=== PATIENT | female | born 1930 | race Caucasian/White ===

== ENCOUNTER 2016-11-08 16:56 | Inpatient (IN) | payer OTHER ==
--- NOTE | ~2016-11-08 | DS ---
Discharge Summary [facility] [address] [place]. [address] NAME: VERA SOTELO : 31 STATUS : DIS IN PAT#: [id number] AGE: 86 ADM/REG DATE : 11/08/16 MR#: [id number] REPORT SERV DATE: 11/13/16 DICTATED BY: DARIO GENTILE DATE: 11/12/16 REPORT STATUS : Draft TRANSCRIBED BY: MODL DATE: 11/12/16 ADMISSION DATE: 11/08/2016 DISCHARGE DATE: 11/12/2016 DISCHARGE DIAGNOSES: 1. Left hip femoral neck fracture, status post hemiarthroplasty of the left hip. 2. History of coronary artery disease with a stent in the past. 3. Type 2 diabetes mellitus. 4. Hypertension. 5. Hyperlipidemia. 6. History of breast cancer, status post right mastectomy, on tamoxifen. 7. History of obstructive sleep apnea. 8. History of atrial flutter. 9. History of postoperative deep venous thrombosis, currently on Eliquis. 10.Osteoporosis. 11.Syncope, most likely vasovagal in nature. CONSULTANTS DURING THIS HOSPITALIZATION: Dr. Dwight Mike of Orthopedic Surgery. INVASIVE PROCEDURES DONE DURING THIS HOSPITALIZATION: Left hip hemiarthroplasty by Dr. Mike on 11/09/2016. BRIEF HISTORY OF PRESENT ILLNESS: The patient is an 86-year-old female who suffered a fall at home with left hip pain and found to have a displaced left femoral neck fracture. So, she was admitted. For detailed history and physical exam, please see note dictated by Dr. Geo Loaiza on 11/08/2016. HOSPITAL COURSE: After being admitted to the hospital, this patient was seen by Orthopedic Surgery and appropriate surgery was performed. She was given DVT prophylaxis and postoperatively, she has mild anemia due to postop blood loss; but otherwise, she remained stable. Physical Therapy has recommended rehab. Orthopedic Surgery has signed off her care. Her diabetes and her hypertension has remained stable. At this time, there is no evidence of any further syncope or presyncope after adjustment of her medications. We will continue with the lisinopril twice daily at 20 mg and add Tenormin at 25 mg with the history of atrial flutter that she normally takes at 50 mg daily. She remained stable otherwise and is being discharged in stable condition. DISCHARGE DISPOSITION: To half-way facility. DISCHARGE ACTIVITY: Per facility. DISCHARGE DIET: Low-sodium diet. DISCHARGE MEDICATIONS: Vitamin C 500 mg once daily; Alphagan eye drops once daily; Colace 100 mg once at bedtime; Cosopt, both eyes twice daily; Eliquis 2.5 mg twice daily; iron 325 mg once at breakfast and at supper; Lopid 600 mg p.o. twice daily; Xalatan eye drops once Discharge Summary [place] [id number] [facility] [address] NAME: VERA SOTELO : 31 STATUS : DIS IN PAT#: [id number] AGE: 86 ADM/REG DATE : 11/08/16 MR#: [id number] REPORT SERV DATE: 11/13/16 DICTATED BY: DARIO GENTILE DATE: 11/12/16 REPORT STATUS : Draft TRANSCRIBED BY: RAMON DATE: 11/12/16 daily in both eyes; lisinopril 20 mg twice daily; multivitamins one tablet daily; tamoxifen 20 mg once every morning; hydrocodone 10/325 one tablet every four hours p.r.n. for pain, #20 with no refills given; Nitrostat 0.4 sublingual p.r.n. for chest pain; MiraLAX one packet p.o. twice daily; aspirin 325 mg once daily; and atenolol 25 mg once daily. DISCHARGE FOLLOWUP: With Dr. Luz Maria Avalos post rehab. More than 30 minutes spent planning this patient's discharge, reconciling medications, writing prescriptions, discussing hospital care, and follow up with the patient and arranging rehab and signing all forms for rehab as well as documenting this discharge. ISRAEL/RAMON Dario Gentile M.D. / [id number] CC: Vilma Alford M.D. Matthew Stephen Bernard, M.D.
--- NOTE | ~2016-11-08 | CN ---
Consultation Report [facility] [address] [place]. [address] NAME: VERA SOTELO : 31 STATUS : ADM IN PAT#: [id number] AGE: 86 ADM/REG DATE : 11/08/16 MR#: [id number] REPORT SERV DATE: 11/11/16 DICTATED BY: CLAIR LINDSAY DATE: 11/09/16 REPORT STATUS : Draft TRANSCRIBED BY: MODL DATE: 11/09/16 CONSULTATION DATE OF CONSULTATION: 11/09/2016 CHIEF COMPLAINT: Left hip pain. HISTORY OF PRESENT ILLNESS: This pleasant 86-year-old female, suffered a same-level fall. She was brought to the [facility] Room, where she was evaluated and noted to have a left displaced femoral neck fracture. I was subsequently consulted for evaluation and management. PAST MEDICAL HISTORY: Significant for CAD with stent, diabetes on insulin, sleep apnea, gout. PAST SURGICAL HISTORY: Includes spine surgery, right total hip arthroplasty, left total knee arthroplasty. She has also had ankle surgery in the past. SOCIAL HISTORY: No alcohol or tobacco. Denies illicits. FAMILY HISTORY: Noncontributory. MEDICATIONS: At home are reviewed in the chart. REVIEW OF SYSTEMS: No headache, chest pain, nausea, vomiting, syncope, dizziness, chills, or other constitutional symptoms for full 14-point systematic review. ALLERGIES: STATINS AND ALLOPURINOL. PHYSICAL EXAMINATION: GENERAL: In no apparent distress. HEENT: Pupils are equally round and reactive to light and accommodation. Extraocular muscles intact. CHEST: Clear to auscultation bilaterally. HEART: Regular rate and rhythm. ABDOMEN: Soft, nontender, nondistended. Bowel sounds are present. EXTREMITIES: Bilateral upper extremities and right lower extremities show a good distal pulses. No peripheral edema. Good sensation. No skin breaks and full active and passive range of motion. Left lower extremity is limited by pain within the left groin. There are no skin breaks. Good distal pulses. No peripheral edema. Good sensation. She is able to flex and extend her toes, 5/5 strength. IMAGING: Radiographs were read as intertrochanteric hip fracture, but I see no evidence of this on radiographs. It appears to me as though she has a displaced femoral neck fracture. Consultation Report [facility] [address] [place]. [address] NAME: VERA SOTELO : 31 STATUS : ADM IN PAT#: [id number] AGE: 86 ADM/REG DATE : 11/08/16 MR#: [id number] REPORT SERV DATE: 11/11/16 DICTATED BY: CLAIR LINDSAY DATE: 11/09/16 REPORT STATUS : Draft TRANSCRIBED BY: RAMON DATE: 11/09/16 PLAN: Therefore, the plan will be for sixto versus total hip arthroplasty. I have discussed this with her and she verbalized understanding and wishes to proceed. We will discuss with the daughter upon her arrival. WALLACE/RAMON Clair Lindsay M.D. / [id number] CC: Vilma Rider M.D.
--- NOTE | ~2016-11-08 | HP ---
History And Physical [place] [id number] [facility] [place]. [address] NAME: VERA NELSON : 31 STATUS : ADM IN PAT#: [id number] AGE: 86 ADM/REG DATE : 11/08/16 MR#: [id number] REPORT SERV DATE: 11/09/16 DICTATED BY: GEO RAYMUNDO DATE: 11/08/16 REPORT STATUS : Draft TRANSCRIBED BY: MODL DATE: 11/08/16 DATE OF ADMISSION: 11/08/2016 CHIEF COMPLAINT: Fall at home with left hip pain. HISTORY OF PRESENT ILLNESS: This is an 86-year-old female with a history of hypertension, sleep apnea, diabetes mellitus, and prior orthopedic surgery, who fell at home today and started having left-sided hip pain. The patient was subsequently brought to the emergency room at [facility], and history was obtained from the patient and her family who are at bedside. According to Mrs. Nelson, who is a good historian, she was in her usual state of health at home and was in her bedroom, when she states her left leg gave way and she fell to the floor. She started experiencing severe left hip pain and was unable to get up. She had a med alert, which she was able to access and help arrived. Subsequently, the patient was brought to the emergency room here. She is quite sure that she did not hit her head against anything or pass out. She had no dizziness, chest pain, palpitations, or any other events prior to falling, just that her leg give away. Apparently, she had done that last week or two and was taken to [facility] for evaluation and at that time, she was cleared. In the emergency room, initial workup including an x-ray of the left hip showed intertrochanteric left hip fracture. They spoke with Dr. Mike, orthopedic surgeon, who advised admission with the Hospitalist Service, keep her n.p.o., and he will see in the morning. At the time of my evaluation, she denied any chest pain, palpitations, or orthopnea. She had no cough, hemoptysis, night sweats, or weight loss. She has not had any loss of consciousness. Although, she has had a couple of falls as mentioned above. No history of prior fevers, chills, nausea, vomiting, diarrhea, hematemesis, hematochezia, or hematuria. No other history of recent travel or exposures, other than those mentioned above. PAST MEDICAL HISTORY: Significant for history of coronary artery disease with stent placement; diabetes mellitus type 2, on insulin; hypertension. She has obstructive sleep apnea as well. She has had breast cancer status post radical right mastectomy. She has also had surgery to her right hip, ankle, and back. SOCIAL HISTORY: She does not smoke, has a drink and denied any recreational drug use. FAMILY HISTORY: Noncontributory. MEDICATIONS AT HOME: Reviewed by me in the chart today and reordered by me. She is allergic to statins and allopurinol. REVIEW OF SYSTEMS: As in history of present illness. All other systems were reviewed in detail and are quite History And Physical [address] [place]. [address] NAME: VERA NELSON : 31 STATUS : ADM IN [facility]#: [id number] AGE: 86 ADM/REG DATE : 11/08/16 MR#: [id number] REPORT SERV DATE: 11/09/16 DICTATED BY: GEO RAYMUNDO DATE: 11/08/16 REPORT STATUS : Draft TRANSCRIBED BY: RAMON DATE: 11/08/16 unremarkable. PHYSICAL EXAMINATION: GENERAL: This is a very pleasant 86-year-old, not in any acute distress. HEENT: Head is atraumatic, normocephalic. She is alert, awake, and oriented to time, place, and person. Pupils are equal, reacting to light and accommodating. External ocular muscles are intact. Membranes are moist and pink. Sclerae are nonicteric. NECK: Supple with no jugular venous distention, lymphadenopathy, or thyromegaly. LUNGS: Clear to auscultation with no wheezes, rubs, or crackles. HEART: Sounds were regular with no murmurs, rubs, or gallops. ABDOMEN: Soft, nontender. Bowel sounds are present. EXTREMITIES: Showed no cyanosis, clubbing, or edema. NEUROLOGIC: Grossly intact. No focal sensory or motor deficits. Higher functions appeared intact. Gait was not examined. VITAL SIGNS: Her vital signs today showed a temperature of 98.3, pulse 62, respirations 19 a minute, blood pressure was 155/69, oxygen saturations were 94% on 2 L of oxygen via nasal cannula. LABORATORY DATA: Reviewed on the [employer] system showed a normal CMP with a blood glucose of 91. CBC was within normal limits as well. Her prothrombin time was 14.5 with an INR of 1.1. Urinalysis was not performed in the ER. Films of the chest x-ray were reviewed by me along with x-ray of her left hip. X-ray of the chest per my interpretation did not have any acute infiltrates or effusions. There is cardiomegaly. X-ray of the left hip showed intertrochanteric left hip fracture. IMPRESSION: 1. Fall at home. 2. Left hip pain. 3. Left hip fracture. 4. Uncontrolled hypertension. 5. Obstructive sleep apnea. 6. Coronary artery disease with stents. 7. Diabetes mellitus type 2. PLAN: We will admit Mrs. Nelson to the Hospitalist Service. We will keep her n.p.o. for tonight. Consult Dr. Dwight Mike for an orthopedic evaluation in the morning. He had been already called by the ER physician. We will establish pain control with low-dose Dilaudid given intravenously on an as-needed basis. We will also start her on hydralazine on an as-needed basis for control of her blood pressure. Continue her home medications. She will be on SCDs for DVT prophylaxis here. Please see today's orders for details. I have discussed the above plans with the patient and the family. Questions were answered and they are agreeable to the above recommendations. Hospitalist Service will be following her during her stay here. MR/RAMON History And Physical [address] [address] NAME: VERA NELSON : 31 STATUS : ADM IN PAT#: [id number] AGE: 86 ADM/REG DATE : 11/08/16 MR#: [id number] REPORT SERV DATE: 11/09/16 DICTATED BY: GEO RAYMUNDO DATE: 11/08/16 REPORT STATUS : Draft TRANSCRIBED BY: RAMON DATE: 11/08/16 Geo Raymundo M.D. / [id number] CC: Vilma Rider M.D.
--- NOTE | ~2016-11-08 | OP ---
Record Of Operation [facility] [address] [place]. [address] NAME: VERA SOTELO : 31 STATUS : ADM IN PAT#: [id number] AGE: 86 ADM/REG DATE : 11/08/16 MR#: [id number] REPORT SERV DATE: 11/09/16 DICTATED BY: CLAIR LINDSAY DATE: 11/09/16 REPORT STATUS : Draft TRANSCRIBED BY: MODL DATE: 11/09/16 DATE OF PROCEDURE: 11/09/2016 PREOPERATIVE DIAGNOSIS: Left hip femoral neck fracture. POSTOPERATIVE DIAGNOSIS: Left hip femoral neck fracture. PROCEDURE: Left hemiarthroplasty. IMPLANTS: [employer] size 14 standard Synergy stem with a 49, +0 monopolar head ball. COMPLICATIONS: None. SPECIMENS: None. COUNTS RECORDED CORRECT: Yes. FINDINGS: Intact pristine acetabular cartilage with a displaced femoral neck fracture. CONDITION UPON LEAVING THE OR: Stable to recovery room with good distal pulses. INDICATIONS FOR PROCEDURE: I gave the operative risks and benefits of surgical indications versus nonsurgical management, including but not limited to , myocardial infarction, pulmonary embolism, stroke, deep venous thrombosis, damage to nerves, damage to vessels, damage to other soft tissues, painful scar, unsightly scar, hardware wear, hardware breakage, periprosthetic fracture, dislocation, and leg length inequality. Possible need for revision surgery that could include further arthroplasty, arthrodesis, or amputation. We also discussed bleeding and infection. The patient verbalized understanding of these risks and wished to proceed to the operating room. PROCEDURE IN DETAIL: After the patient was identified in the preoperative holding area, all risks and benefits again were discussed with the patient. All questions answered satisfactorily. The patient wished to proceed with surgery. Correct side and site was identified, marked by me. We then proceeded to the operating room, where the patient was placed under general endotracheal anesthesia, supine on the regular OR bed. A Rodriguez catheter was placed. The patient was transferred to the lateral decubitus position with the operative hip up. Prepped and draped in sterile fashion. Correct antibiotics and time-out procedure observed by all in the room. We then began with a 10 cm standard posterolateral incision carried sharply down through the tissues and the fascia karen was incised in line with the incision. Bovie cautery was utilized to gain hemostasis. The gluteus max fibers were split in line with their orientation giving good visualization of the posterolateral aspect of the hip. The piriformis was identified and taken down in its insertion as well as the remainder of the short external rotators in the posterior capsule. This was tagged and brought posterior to protect the sciatic nerve which had been identified prior to the previous stab. With that, the distal femur was easily dislocated leaving the remainder of the head ball in the bony acetabulum. This was subsequently removed noting good articular Record Of Operation [address] [place]. [address] NAME: VERA SOTELO : 31 STATUS : ADM IN PAT#: [id number] AGE: 86 ADM/REG DATE : 11/08/16 MR#: [id number] REPORT SERV DATE: 11/09/16 DICTATED BY: CLAIR LINDSAY DATE: 11/09/16 REPORT STATUS : Draft TRANSCRIBED BY: RAMON DATE: 11/09/16 cartilage at the femoral head, as well as the bony acetabulum. We elected to choose a hemiarthroplasty at this time for its decreased dislocation rate. With that, we copiously irrigated the bony acetabulum placed a proximal femoral elevator freshened a neck cut and began broaching and reaming for the AML stem. Once the size was settled upon, it was trialed noting to recreate her leg lengths and offset. With that, we extracted the trial components impacted our final AML stem in approximately 15 degrees of anteversion to match the patient s lumbee version, placed the final head ball on a clean dry Brar taper. Afte trials, again settling on a -3 neck with final implants in, she was reduced noting good suction fit within the bony acetabulum noting good recreation of soft tissue repair, coming to full extension and external rotation without impingement. There was no excessive tension on the sciatic nerve. Leg lengths were clinically equal on the table and the patient was able to flex to 90 degrees slight adduct and internally rotate to 75 degrees before beginning to sublux this head ball out of the bony acetabulum. With that, we felt the patient was stable. We copiously irrigated all of the soft tissues, closed the posterior capsule and short external rotators with number 1 Ethibond through bone tunnels, followed by two Quill in the fascia karen, followed by skin mago and 2-0 Vicryl in the skin, followed by Monocryl and Steri-Strips. The patient was awakened and transferred to the recovery room in stable condition. WALLACE/RAMON Clair Lindsay M.D. / [id number] CC: Vilma Rider M.D.
[~2016-11-08 16:56] MED LIST: 8 HOUR650 MG PO; ASA5GR PO; ATEN50 PO; BRIMONIDINE0.2 % OPH; CALTRA600D PO; CELESTONE0.6 MG/5 M OR; COSOPT OPH; DIOV160 PO; EYE DROP OP; FISH-EPA1000 MG PO; GLUCPH PO; HCTZ25B PO; HYDROCHLOROT25 MG PO; IBU800 PO; LISINOPRIL40 MG PO; LOPID6 PO; MULTIPLE VIT PO; MULTIVITAMI1 PO; NAP375 PO; NITROQUICK0.4 MG SL; NORV5 PO; OS500+D PO; OXYCOD PO; PLEND5 PO; PRIN10 PO; TRAVATAN OPH; VITAMIN C100 MG PO; VITAMIN C250 MG PO; XALAT OPH
[2016-11-08 18:56] LABS: BASOPHILS 0.3 %; BASOPHILS ABSOLUTE 0.03 10/3/uL (0.0-0.16); EOSINOPHILS 2.4 %; EOSINOPHILS ABSOLUTE 0.23 10/3/uL (0.0-0.53); HEMOGLOBIN 12.5 g/dL (12.0-16.0); IMMATURE GRANULOCYTES ABSOLUTE 0.02 10/3/uL (0.0-0.11); LYMPHOCYTES 12.9 %; LYMPHOCYTES ABSOLUTE 1.26 10/3/uL (0.67-4.30); MEAN CORPUS HGB CONC 33.5 g/dL (32.0-36.0); MEAN PLATELET VOLUME 10.4 fL (9.2-13.0); MONOCYTES 5.7 %; MONOCYTES ABSOLUTE 0.55 10/3/uL (0.21-1.20); NEUTROPHILS 78.5 %; NEUTROPHILS ABSOLUTE 7.64 10/3/uL (2.02-8.40); PLATELET COUNT 297 10/3/uL (150-400); RBC DISTRIBUTION WIDTH 13.7 % (12.0-16.0); RED CELL COUNT 4.16 10/6/uL (4.0-5.6); WHITE BLOOD CELLS 9.7 10/3/uL (4.5-10.5)
[2016-11-08 18:57] LABS: HEMATOCRIT 37.3 % (36.0-48.0); IMMATURE GRANULOCYTES 0.2 %; MANUAL DIFF NO %; MEAN CORPUSCULAR VOLUME 89.7 fL (80-100)
[2016-11-08 19:04] LABS: INTERNATIONAL NORMAL RATI 1.1 UNITS (-); PARTIAL THROMBO TIME 26.2 SEC (22.5-37.2)
[2016-11-08 19:06] LABS: PROTIME (NOT ORD) 14.5 SEC (12.0-14.5)
[2016-11-08 19:21] LABS: A/G RATIO 1.4 (0.7-1.9); ALBUMIN 3.8 G/DL (3.5-5.0); ALKALINE PHOSPHATASE 98 U/L (45-117); BUN (BLOOD UREA NITROGEN) 31 MG/DL (6-23); CALCIUM, SERUM 9.1 MG/DL (8.5-10.4); CHLORIDE, SERUM 109 MMOL/L (96-112); CO2 (CARBON DIOXIDE) 24 MMOL/L (24-34); CREATININE 0.94 MG/DL (0.55-1.02); GFR AFRICAN AMERICAN 64 ML/MIN (>=60); GFR NON AFRICAN AMERICAN 55 ML/MIN (>=60); GLOBULIN 2.8 G/DL (2.5-4.1); GLUCOSE, SERUM 91 MG/DL (60-99); POTASSIUM, SERUM 3.7 MMOL/L (3.5-5.3); SGOT(AST) 14 U/L (5-40); SGPT(ALT) 13 U/L (5-65); SODIUM, SERUM 145 MMOL/L (135-148); TOTAL BILIRUBIN 0.6 MG/DL (0-1.2); TOTAL PROTEIN 6.6 G/DL (6.0-8.5)
[2016-11-08 19:23] LABS: BAND NEUTROPHILS 3 %; EOSINOPHILS 3 %; EOSINOPHILS ABSOLUTE (CALC) 0.29 10/3/uL (0.0-0.53); ER DIFF TAT 0 Hrs 31 Mins; LYMPHOCYTES 8 %; LYMPHOCYTES ABSOLUTE (CALC) 0.78 10/3/uL (0.67-4.30); MONOCYTES 7 %; MONOCYTES ABSOLUTE (CALC) 0.68 10/3/uL (0.21-1.20); NEUTROPHILS ABSOLUTE (CALC) 7.95 10/3/uL (2.02-8.40); PLATELET ESTIMATE ADQ (ADEQUATE); RBC MORPHOLOGY NORM (NORMAL); SEGMENTED NEUTROPHIL (0) 79 %; TOTAL NUCLEATED CELLS 100
[2016-11-08] MEDS ORDERED: ALPHAGAN OPH (21:43)
[2016-11-08] MEDS ORDERED: CEFT2 PO (21:44)
[2016-11-08] MEDS ORDERED: XALAT OPH (21:45)
[2016-11-08] MEDS ORDERED: TAMOXIFEN20 M1 PO (21:45)
[2016-11-08] MEDS ORDERED: LISINOPRIL40 MG PO (21:45)
[2016-11-08] MEDS ORDERED: HYDROCHLOROT25 MG PO (21:46)
[2016-11-08] MEDS ORDERED: DSS PO (21:46)
[2016-11-08] MEDS ORDERED: LOPID6 PO (21:46)
[2016-11-08] MEDS ORDERED: COSOPT OPH (21:46)
[2016-11-08] MEDS ORDERED: MULTIVIT/MIN PO (21:47)
[2016-11-08] MEDS ORDERED: ALEVE220 MG PO (21:47)
[2016-11-08] MEDS ORDERED: ASABAYER PO (21:47)
[2016-11-08] MEDS ORDERED: VITC500 PO (21:47)
[2016-11-08] MEDS ORDERED: ATEN50 PO (21:49)
[2016-11-08] MEDS ORDERED: NITROSTAT0.4 MG SL (21:49)
[2016-11-09 07:13] LABS: BASOPHILS 0.5 %; BASOPHILS ABSOLUTE 0.03 10/3/uL (0.0-0.16); EOSINOPHILS 2.5 %; EOSINOPHILS ABSOLUTE 0.16 10/3/uL (0.0-0.53); HEMATOCRIT 36.6 % (36.0-48.0); HEMOGLOBIN 11.9 g/dL (12.0-16.0); IMMATURE GRANULOCYTES 0.2 %; IMMATURE GRANULOCYTES ABSOLUTE 0.01 10/3/uL (0.0-0.11); LYMPHOCYTES 21.4 %; LYMPHOCYTES ABSOLUTE 1.38 10/3/uL (0.67-4.30); MEAN CORPUS HGB CONC 32.5 g/dL (32.0-36.0); MEAN CORPUSCULAR HEMOGLOB 29.5 pg (26.0-34.0); MEAN CORPUSCULAR VOLUME 90.6 fL (80-100); MEAN PLATELET VOLUME 9.8 fL (9.2-13.0); MONOCYTES 9.8 %; MONOCYTES ABSOLUTE 0.63 10/3/uL (0.21-1.20); NEUTROPHILS 65.6 %; NEUTROPHILS ABSOLUTE 4.25 10/3/uL (2.02-8.40); PLATELET COUNT 301 10/3/uL (150-400); RBC DISTRIBUTION WIDTH 13.2 % (12.0-16.0); RED CELL COUNT 4.04 10/6/uL (4.0-5.6); WHITE BLOOD CELLS 6.5 10/3/uL (4.5-10.5)
[2016-11-09 07:15] LABS: MANUAL DIFF NO %
[2016-11-09 07:27] LABS: INTERNATIONAL NORMAL RATI 1.1 UNITS (-); PROTIME (NOT ORD) 14.4 SEC (12.0-14.5)
[2016-11-09 07:28] LABS: CALCIUM, SERUM 8.7 MG/DL (8.5-10.4); CHLORIDE, SERUM 108 MMOL/L (96-112); CO2 (CARBON DIOXIDE) 25 MMOL/L (24-34); CREATININE 0.83 MG/DL (0.55-1.02); GFR AFRICAN AMERICAN 75 ML/MIN (>=60); GFR NON AFRICAN AMERICAN 64 ML/MIN (>=60); GLUCOSE, SERUM 86 MG/DL (60-99); POTASSIUM, SERUM 3.6 MMOL/L (3.5-5.3); SODIUM, SERUM 143 MMOL/L (135-148)
[2016-11-09 07:29] LABS: BUN (BLOOD UREA NITROGEN) 25 MG/DL (6-23)
[2016-11-10 05:23] LABS: HEMOGLOBIN 10.1 g/dL (12.0-16.0); MEAN CORPUS HGB CONC 32.7 g/dL (32.0-36.0); MEAN CORPUSCULAR HEMOGLOB 29.3 pg (26.0-34.0); MEAN CORPUSCULAR VOLUME 89.6 fL (80-100); MEAN PLATELET VOLUME 11.2 fL (9.2-13.0); RBC DISTRIBUTION WIDTH 13.4 % (12.0-16.0); RED CELL COUNT 3.45 10/6/uL (4.0-5.6); WHITE BLOOD CELLS 6.9 10/3/uL (4.5-10.5)
[2016-11-10 05:24] LABS: HEMATOCRIT 30.9 % (36.0-48.0); MANUAL DIFF YES %; PLATELET COUNT 163 10/3/uL (150-400)
[2016-11-10 05:48] LABS: BUN (BLOOD UREA NITROGEN) 26 MG/DL (6-23); CALCIUM, SERUM 8.2 MG/DL (8.5-10.4); CHLORIDE, SERUM 107 MMOL/L (96-112); CREATININE 0.74 MG/DL (0.55-1.02); GFR AFRICAN AMERICAN 86 ML/MIN (>=60); GFR NON AFRICAN AMERICAN 74 ML/MIN (>=60); GLUCOSE, SERUM 103 MG/DL (60-99); SODIUM, SERUM 142 MMOL/L (135-148)
[2016-11-10 05:52] LABS: CO2 (CARBON DIOXIDE) 20 MMOL/L (24-34); POTASSIUM, SERUM 4.7 MMOL/L (3.5-5.3)
[2016-11-10 06:22] LABS: BAND NEUTROPHILS 3 %; BASOPHILS 1 %; BASOPHILS ABSOLUTE (CALC) 0.07 10/3/uL (0.0-0.16); LYMPHOCYTES 10 %; LYMPHOCYTES ABSOLUTE (CALC) 0.69 10/3/uL (0.67-4.30); MONOCYTES 8 %; MONOCYTES ABSOLUTE (CALC) 0.55 10/3/uL (0.21-1.20); NEUTROPHILS ABSOLUTE (CALC) 5.59 10/3/uL (2.02-8.40); PLATELET ESTIMATE ADQ (ADEQUATE); RBC MORPHOLOGY NORM (NORMAL); SEGMENTED NEUTROPHIL (0) 78 %; TOTAL NUCLEATED CELLS 100
[2016-11-11 04:59] LABS: HEMATOCRIT 29.2 % (36.0-48.0); HEMOGLOBIN 9.7 g/dL (12.0-16.0); MEAN CORPUS HGB CONC 33.2 g/dL (32.0-36.0); MEAN CORPUSCULAR HEMOGLOB 29.8 pg (26.0-34.0); MEAN CORPUSCULAR VOLUME 89.8 fL (80-100); MEAN PLATELET VOLUME 10.4 fL (9.2-13.0); RBC DISTRIBUTION WIDTH 13.5 % (12.0-16.0); RED CELL COUNT 3.25 10/6/uL (4.0-5.6); WHITE BLOOD CELLS 7.2 10/3/uL (4.5-10.5)
[2016-11-11 05:12] LABS: CALCIUM, SERUM 8.2 MG/DL (8.5-10.4); CHLORIDE, SERUM 105 MMOL/L (96-112); CO2 (CARBON DIOXIDE) 24 MMOL/L (24-34); CREATININE 0.73 MG/DL (0.55-1.02); GFR AFRICAN AMERICAN 87 ML/MIN (>=60); GFR NON AFRICAN AMERICAN 75 ML/MIN (>=60); GLUCOSE, SERUM 91 MG/DL (60-99); SODIUM, SERUM 141 MMOL/L (135-148)
[2016-11-11 05:13] LABS: PLATELET COUNT 244 10/3/uL (150-400)
[2016-11-11 05:14] LABS: BUN (BLOOD UREA NITROGEN) 21 MG/DL (6-23); MANUAL DIFF YES %; POTASSIUM, SERUM 3.7 MMOL/L (3.5-5.3)
[2016-11-11 06:30] LABS: BAND NEUTROPHILS 2 %; LYMPHOCYTES 13 %; LYMPHOCYTES ABSOLUTE (CALC) 0.94 10/3/uL (0.67-4.30); MONOCYTES 3 %; MONOCYTES ABSOLUTE (CALC) 0.22 10/3/uL (0.21-1.20); NEUTROPHILS ABSOLUTE (CALC) 6.05 10/3/uL (2.02-8.40); PLATELET ESTIMATE ADQ (ADEQUATE); RBC MORPHOLOGY NORM (NORMAL); SEGMENTED NEUTROPHIL (0) 82 %; TOTAL NUCLEATED CELLS 100
== END 2016-11-12 12:59 | DRG 470 ==
LOC: ER 16:56 → 4SO 22:28
PROVIDERS: Emergency Medicine; Hospitalist; Internal Medicine Pulmonary Disease; Orthopaedic Surgery
PROC: 0SRS0JA Replacement of Left Hip Joint, Femoral Surface with Synthetic Substitute, Uncemented, Open Approach (ICD-10-PCS; principal; 2016-11-09 07:30)
DX: S72.142A Displaced intertrochanteric fracture of left femur, initial encounter for closed fracture (principal); I48.92 Unspecified atrial flutter; E11.9 Type 2 diabetes mellitus without complications; D62 Acute posthemorrhagic anemia; W18.39XA Other fall on same level, initial encounter; Y92.003 Bedroom of unspecified non-institutional (private) residence as the place of occurrence of the external cause; Z91.81 History of falling; I25.10 Atherosclerotic heart disease of native coronary artery without angina pectoris; Z95.5 Presence of coronary angioplasty implant and graft; I10 Essential (primary) hypertension; G47.33 Obstructive sleep apnea (adult) (pediatric); Z79.4 Long term (current) use of insulin; Z85.3 Personal history of malignant neoplasm of breast; Z90.11 Acquired absence of right breast and nipple; Z86.718 Personal history of other venous thrombosis and embolism; M81.0 Age-related osteoporosis without current pathological fracture; E78.5 Hyperlipidemia, unspecified; Z79.01 Long term (current) use of anticoagulants; R55 Syncope and collapse
CPT/HCPCS: 36415; 71010; 72170; 73502-LT; 73552-LT; 80048; 80053; 82962; 83036; 83735; 84100; 85025; 85610; 85730; 86850; 86870; 86900; 86901; 86920; 86922; 88305; 88311; 88341; 88342; 88360; 93005; 96372; 97162-GP; 97165-GO; 97530-GP; 99284; A9270-GY; C1776; J0690; J1170; J1885; J2274; J2370; J2405; J2795; J3010